=== PATIENT | male | born 1945 | race Caucasian/White ===

== ENCOUNTER 2024-11-27 12:49 | Emergency (ER) | payer MEDICARE ==
[~2024-11-27] VITALS: Ht 188 cm; Wt 79.3 kg
[2024-11-27 13:56] LABS: BASO # 0.1 10^3/uL (0.0-0.2); BASO % 0.8 % (0.0-1.0); EOS # 0.2 10^3/uL (0.0-0.5); EOS % 3.8 % (0.0-3.0); LYMPH # 2.2 10^3/uL (1.5-5.0); LYMPH % 35.8 % (24.0-44.0); MONO # 0.7 10^3/uL (0.0-0.8); MONO % 11.4 % (2.0-8.0); NEUTROPHILS # 2.9 10^3/uL (1.5-8.5); NEUTROPHILS % 48.0 % (36.0-66.0); PLATELET COUNT, AUTOMATED 218 10^3/uL (150-450)
[2024-11-27 14:21] LABS: CALCIUM LEVEL 9.3 MG/DL (8.3-10.6); CARBON DIOXIDE LEVEL 29.0 MMOL/L (20-31); CHLORIDE LEVEL 103.0 MMOL/L (98-107); CREATININE FOR GFR 0.84 MG/DL (0.70-1.30); GLOMERULAR FILTRATION RATE 88.7 (>42); POTASSIUM SERUM 4.1 MMOL/L (3.5-5.1); SODIUM LEVEL 141.0 MMOL/L (136-145)
[2024-11-27] MEDS ORDERED: PRAV10TA43 PO (15:12)
[2024-11-27] MEDS ORDERED: BUDE32SU6 (15:12)
[2024-11-27] MEDS ORDERED: MONT-5 PO (15:12)
[2024-11-27 15:26] VITALS: BP 139/94; TEMP 97.6; O2SAT 95
== END 2024-11-27 15:41 | disposition home or self-care (01) ==
LOC: M ED 12:49
DX: J30.89 Other allergic rhinitis (principal); Z79.899 Other long term (current) drug therapy